=== PATIENT | male | born 1945 | race Hispanic/Latino ===

== ENCOUNTER → 2024-09-21 | Outpatient (CLI) | payer OTHER ==
[~2024-09-21] MED LIST: CHOL100018 PO; FINA5TAB41 PO; METO50TA18 PO; SIMV80TA91 PO; TAMS-55 PO
--- NOTE | 2024-09-21 18:52 | HMCSR ---
APPROVED REPORT EXAM: Two-dimensional and M-mode echocardiogram with Doppler and color Doppler. INDICATION ICD: Atherosclerotic heart disease of [place] coronary artery without angina pectoris I25.10 2D Dimensions RVDd4.5 cmLVEF(%)57.3 (>50%)LVED Vol(simp.)55.0 mL IVSd0.8 (0.7-1.1cm)FS(%)30 %LVES Vol(simp.)19.0 mL LVDd4.2 (3.8-5.6cm)LA (2D)3.8 (1.6-4.0cm)LVEF(%, simp.)65 % PWd1.1 (0.7-1.1cm)Ao Root(2D)3.4 (2.0-3.7cm)LA ESV INDEX (BP)26.78 mL/m2 LVDs3.0 (2.5-4.0cm)LVOT diam2.0 (1.8-2.4cm) IVC diam1.7 cm M-Mode Dimensions EPSS1.0 cm LA (MM)4.6 (1.6-4.0cm) Ao Root(MM)2.7 (2.0-3.7cm) Aortic Valve AoV Vmax1.2 m/[place] GR5.9 mmHgLVOT Vmax1.1 m/s AoV VTI0.3 mAo Mean GR3.0 mmHgLVOT VTI0.24 m CIERA (VMAX)2.65 cm2AVA (VTI) 2.6 cm2 Mitral Valve MV E Vmax72.2 cm/sDECEL Hdmh003 ms MV A Vmax77.6 cm/sP 1/2 T53 ms E/A ratio0.9MVA (PHT)4.2 cm2 TDI E/E' Medial9.5E/E' Lateral7.2 Medial E' Peak V7.58 cm/sLateral E' Peak V9.98 cm/s Pulmonary Valve PV Vmax1.4 m/sPV VTI0.25 mPV Mean GR4.6 mmHg PV Peak GR7.9 mmHg Left Ventricle The left ventricle is normal size. There is normal LV segmental wall motion. There is normal left maría tricular wall thickness. LVEF is 60-65%. The left ventricular diastolic function is normal. Right Ventricle The right ventricle is mildly dilated. The right ventricular systolic function is normal. Atria The left atrium size is normal. The right atrium is moderately dilated. Aortic Valve The aortic valve is normal in structure. No aortic regurgitation is present. There is no aortic valvu lar stenosis. Mitral Valve The mitral valve is normal in structure. Mitral regurgitation is trace. There is no mitral valve sten osis. Tricuspid Valve The tricuspid valve is normal in structure. There is trace tricuspid valve regurgitation noted. Pulmonic Valve Pulmonic valve is not well visualized. There is no pulmonic valvular regurgitation. Great Vessels The aortic root is normal in size. The IVC is normal in size and collapses >50% with inspiration. Pericardium There is no pericardial effusion. Other Information Quality : Fair Conclusion The left ventricle is normal size. LVEF is 60-65% with normal LV segmental wall motion. The left ventricular diastolic function is normal. The right ventricle is mildly dilated with a preserved systolic function. Both atria are normal in size. No hemodynamically significant valvular abnormalities. There is no pericardial effusion.
== END | disposition home or self-care (01) ==
LOC: RAH 11:44
PROVIDERS: ATTEND Chiropractor
DX: I25.10 Atherosclerotic heart disease of native coronary artery without angina pectoris (principal)
CPT/HCPCS: 93306